=== PATIENT | male | born 1940 | race Caucasian/White ===

== ENCOUNTER 2019-11-17 17:38 | Emergency (ER) | payer OTHER ==
[~2019-11-17] VITALS: Ht 182.9 cm; Wt 95.3 kg
[2019-11-17] MEDS ORDERED: LIPITOR40 MG PO (18:33)
[2019-11-17] MEDS ORDERED: VITAMIN C500 M2 PO (18:33)
[2019-11-17] MEDS ORDERED: KEFLEX500 M2 PO (18:34)
[2019-11-17] MEDS ORDERED: VITAMIN D32000 UNI2 PO (18:35)
[2019-11-17] MEDS ORDERED: CELEXA 10 MG TA10 M1 PO (18:35)
[2019-11-17] MEDS ORDERED: HYDRALAZINE 5050 MG PO (18:36)
[2019-11-17] MEDS ORDERED: FLORASTOR250 MG PO (18:36)
[2019-11-17] MEDS ORDERED: SUPER THERAVIT1 EACH PO (18:37)
[2019-11-17] MEDS ORDERED: IPRAT-ALBUT 0.5-3 ML INH (18:37)
[2019-11-17] MEDS ORDERED: HYDROCODON-ACE1 EAC8 PO (18:37)
[2019-11-17] MEDS ORDERED: PANTOPRAZOLE SO40 M1 PO (18:38)
[2019-11-17] MEDS ORDERED: PROTONIX40 M2 PO (18:38)
[2019-11-17 19:08] LABS: ABSOLUTE NEUTROPHILS 3.6 thou/uL (1.4-8.2); BASOPHILS 1.1 % (0.0-2.0); EOSINOPHILS 0.3 % (0.0-3.0); HEMATOCRIT 27.5 % (42.0-52.0); HEMOGLOBIN 8.8 gm/dL (14.0-18.0); LYMPHOCYTES 19.1 % (24.0-44.0); MCH 31.2 pg (26.0-34.0); MCHC 31.9 g/dL (28.0-37.0); MCV 97.9 fL (80.0-100.0); MONOCYTES 7.1 % (1.0-8.0); PLATELET COUNT 237 thou/uL (150-400); POLYS 72.4 % (36.0-66.0); RBC 2.81 mil/uL (4.50-6.00)
[2019-11-17 19:23] LABS: BUN 26 mg/dL (7-18); CALCIUM 9.7 mg/dL (8.5-10.1); CO2 27 mmol/L (21-32); CREATININE 1.6 mg/dL (0.7-1.3); GLUCOSE 85 mg/dL (74-106); TROPONIN-I <0.06 ng/mL (<0.06)
[2019-11-17 19:35] LABS: ANION GAP 8 mmol/L (7-16); CHLORIDE 105 mmol/L (98-107); POTASSIUM 4.7 mmol/L (3.5-5.1); SODIUM 140 mmol/L (136-145)
[2019-11-17 21:48] VITALS: BP 138/63
--- NOTE | 2019-11-18 10:03 | EKG ---
[place] [address] [facility] [place] [address] ELECTROCARDIOGRAM REPORT Name: SPARKLE BOWER Room #: [facility] [id number] Admission: 11/17/19 Attend Phys: Discharge: 11/17/19 Date of : 40 Report #: [id number] THIS REPORT FOR: //name// [facility] ED Test Date: 2019-11-17 Test Time: 19:40:49 Pat Name: SPARKLE BOWER Department: Room: Gender: M [employer] [facility] 1940 Requested By: Joo Mosqueda Order Number: [id number] MD: Ken Conde Measurements Intervals [place] Rate: 68 P: PA: QRS: -36 QRSD: 103 T: 34 QT: 475 QTc: 506 Interpretive Statements Atrial fibrillation Left axis deviation Prolonged QT interval No previous ECG available for comparison Electronically Signed On 11-18-2019 10:03:10 [employer] PAYABLE ASSISTANT by Ken Conde [email or web address] <ELECTRONICALLY SIGNED> By: Ken Conde MD, [facility] 11/18/19 1003 39 39 Ken Conde MD, FACC /EPI
== END 2019-11-17 21:48 | disposition home or self-care (01) ==
LOC: ER 17:38
PROVIDERS: Emergency Medicine
DX: M54.2 Cervicalgia (principal); M25.552 Pain in left hip; I48.91 Unspecified atrial fibrillation; E03.9 Hypothyroidism, unspecified; K21.9 Gastro-esophageal reflux disease without esophagitis; F32.9 Major depressive disorder, single episode, unspecified; Z86.711 Personal history of pulmonary embolism; Z88.1 Allergy status to other antibiotic agents; Z88.6 Allergy status to analgesic agent; W06.XXXA Fall from bed, initial encounter; Y93.89 Activity, other specified; Y92.89 Other specified places as the place of occurrence of the external cause; Y99.8 Other external cause status